=== PATIENT | female | born 1970 | race Caucasian/White ===

== ENCOUNTER 2022-07-08 08:21 | Observation (INO) ==
[2022-07-08 08:28] VITALS: TEMP 98.2
[2022-07-08] MEDS ORDERED: Iopamidol - 370 500 ML MLS IVP ONE (08:41)
[2022-07-08 09:01] LABS: INR 1.1; Prothrombin Time 12.1 Seconds (9.4-12.1)
[2022-07-08 09:03] LABS: Activated Partial Thrombo Time 31.9 Seconds (26.0-36.0)
[2022-07-08 09:10] VITALS: O2SAT 98
[2022-07-08 09:10] LABS: Hematocrit 45.5 % (35.3-44.9); Mean Corpuscular Hemoglobin 29.5 pg (28.0-33.3); Mean Corpuscular Volume 89.6 fL (83.0-100.0); Mean Platelet Volume 11.1 fL (9.4-12.4); Platelet Count 275 K/mcL (140-400); Red Blood Count 5.08 M/mcL (3.82-4.97); Red Cell Distribution Width 12.3 % (11.5-14.5); White Blood Count 5.3 K/mcL (4.3-11.1)
[2022-07-08 09:14] LABS: BUN/Creatinine Ratio 17 (6-26); Blood Urea Nitrogen 16 mg/dL (6-20); Calcium 9.4 mg/dL (8.6-10.3); Carbon Dioxide 25 mEq/L (23-29); Chloride 106 mEq/L (98-107); Glucose 121 mg/dL (70-105); Osmolality,Calculated 288 (280-300); Potassium 3.6 mEq/L (3.5-5.1); Sodium 138 mEq/L (136-145); Troponin I < 0.03 ng/mL (< 0.04)
[2022-07-08 09:22] VITALS: BP 139/87; PULSE 77
[2022-07-08] MEDS ORDERED: Aspirin 81 MG TAB.CHEW PO STA (09:26)
[2022-07-08] MEDS ORDERED: Melatonin 3 MG TABLET PO PRN (10:06)
[2022-07-08] MEDS ORDERED: Ondansetron 4 MG/2 ML VIAL IVP PRN (10:06)
[2022-07-08] MEDS ORDERED: Acetaminophen 325 MG TABLET PO PRN (10:06)
[2022-07-08 10:26] LABS: Bilirubin,Urine Negative (Negative); Blood,Urine Negative (Negative); Clarity,Urine Clear (Clear); Color,Urine Colorless (Yellow); Glucose,Urine (UA) Normal (Normal); Ketones,Urine Negative (Negative); Leukocyte Esterase,Urine Negative (Negative); Nitrite,Urine Negative (Negative); Protein,Urine Negative (Neg-Trace); Specific Gravity,Urine > 1.030 (1.010-1.025); Urobilinogen,Urine Normal (Normal)
[2022-07-08 10:29] LABS: Chol/HDL Ratio 3.6 (0-4.9); Cholesterol 263 mg/dL (< 200); HDL Cholesterol 74 mg/dL (40-59); LDL Cholesterol,Calculated 177 mg/dL (< 100); Triglycerides 62 mg/dL (< 150)
[2022-07-08 11:56] LABS: Estimated Average Glucose 114 mg/dl; Hemoglobin A1C 5.6 %
[2022-07-08] MEDS ORDERED: predniSONE 20 MG TABLET PO SCH (13:00)
[2022-07-08 14:27] LABS: Adenovirus Not Detected (Not Detect); Bordetella Pertussis Not Detected (Not Detect); Chlamydophila pneumoniae Not Detected (Not Detect); Coronavirus 229E Not Detected (Not Detect); Coronavirus HKU1 Not Detected (Not Detect); Coronavirus NL63 Not Detected (Not Detect); Coronavirus OC43 Not Detected (Not Detect); Human Metapneumovirus Not Detected (Not Detect); Human Rhinovirus/Enterovirus Not Detected (Not Detect); Influenza A Subtype 2009 H1 Not Detected (Not Detect); Influenza B Not Detected (Not Detect); Mycoplasma pneumoniae Not Detected (Not Detect); Parainfluenza Virus 1 Not Detected (Not Detect); Parainfluenza Virus 2 Not Detected (Not Detect); Parainfluenza Virus 3 Not Detected (Not Detect); Parainfluenza Virus 4 Not Detected (Not Detect); Respiratory Syncytial Virus Not Detected (Not Detect); SARS-CoV-2 Not Detected (Not Detect)
[2022-07-09] MEDS ORDERED: *HR* Enoxaparin 40 MG/0.4 ML SYRINGE SQ SCH (06:00)
[2022-07-09] MEDS ORDERED: Aspirin 81 MG TAB.CHEW PO SCH (09:00)
== END 2022-07-08 13:58 | disposition home or self-care (01) ==
LOC: 3BNU 08:21 → EMEROOARM 08:21 → 3BNU 11:45
PROVIDERS: ADMIT Internal Medicine; ATTEND Internal Medicine